=== PATIENT | female | born 1985 | race African-American/Black ===

== ENCOUNTER 2020-06-05 13:15 | Outpatient (CLI) | payer OTHER, SELFPAY ==
[2020-06-05 15:02] LABS: Hepatitis C Virus Antibody Negative (Negative)
[2020-06-06 09:00] LABS: Rapid Plasma Reagin Non-Reactive (NonReactive)
== END 2020-06-05 13:16 | disposition home or self-care (01) ==
PROVIDERS: Visit Provider Obstetrics & Gynecology
DX: Z20.2 Contact with and (suspected) exposure to infections with a predominantly sexual mode of transmission (principal)
CPT/HCPCS: 36415; 86592; 86803

== ENCOUNTER 2021-04-06 13:15 | Outpatient (CLI) | payer OTHER, SELFPAY ==
[2021-04-06 14:50] LABS: HIV 1/2 Ab P24 Ag Result Negative (Negative)
[2021-04-06 15:01] LABS: Rubella IgG Antibody > 120.0 IU/ML
[2021-04-06 15:18] LABS: Hepatitis C Virus Antibody Negative (Negative)
[2021-04-06 15:48] LABS: Basophils Percent Auto 0.2 % (0.2-1.2); Eosinophils Percent Auto 0.3 % (0-4.4); Hematocrit 32.4 % (37.0-47.0); Hemoglobin 10.2 g/dL (12.0-15.0); Immature Granulocyte Absolute 0.04 K/mm3 (0.00-0.031); Immature Granulocyte Percent A 0.4 % (0-0.5); Lymphocytes Absolute Auto 1.69 K/mm3 (0.9-3.2); Mean Corpuscular HGB Conc 31.5 g/dl (32-36); Mean Corpuscular Hemoglobin 28.3 pg (26-34); Mean Corpuscular Volume 89.8 fl (80-100); Mean Platelet Volume 12.3 fl (7.4-10.4); Monocytes Absolute Auto 0.6 K/mm3 (0.1-0.6); Monocytes Percent Auto 6.4 % (2.6-8.5); Neutrophils Absolute Auto 7.5 K/mm3 (1.3-6.7); Neutrophils Percent Auto 75.7 % (45.5-73.1); Platelet Count Result 199 k/mm3 (150-375); Red Blood Count 3.61 M/mm3 (4.2-5.4); Red Cell Distribution Width 16.9 % (11.5-14.5)
[2021-04-06 16:06] LABS: Add Urine Microscopic? YES; Appearance Urine Cloudy (Clear); Bilirubin Urine Negative (Negative); Blood Urine Negative (Negative); Color Urine Yellow (Yellow); Glucose Urine UA Negative (Negative); Ketones Urine Negative (Negative); Leukocyte Esterase Ur 2+ LEU/UL (NEGATIVE); Mucus Urine Rare /lpf; Nitrate Urine Negative (Negative); Protein Urine 2+ mg/dL (Negative); Specific Grav Ur 1.025 (1.001-1.035); Squamous Epithelial Cell Urine Many /hpf (Few); WBC Urine 21-30 /hpf (0-3)
[2021-04-07 09:47] LABS: Rapid Plasma Reagin Non-Reactive (NonReactive)
[2021-04-09 13:33] LABS: Hematocrit 31.6 % (35.0-45.0); Hemoglobin 10.3 g/dL (11.7-15.5); MCH 28.8 pg (27.0-33.0); MCV 88.3 fL (80.0-100.0); RDW 17.5 % (11.0-15.0); Red Blood Cell Count 3.58 Mill/uL (3.80-5.10)
== END 2021-04-06 13:16 | disposition home or self-care (01) ==
PROVIDERS: PCP Obstetrics & Gynecology; Visit Provider Obstetrics & Gynecology
DX: Z34.90 Encounter for supervision of normal pregnancy, unspecified, unspecified trimester (principal)
CPT/HCPCS: 36415; 81001; 83021; 84443; 85025; 86592; 86703; 86762; 86787; 86803; 86850; 86900; 86901; 87077; 87086; 87088; 87186; G0432

== ENCOUNTER → 2021-04-21 04:56 | Outpatient (CLI) | payer OTHER, SELFPAY ==
[2021-04-22 01:26] LABS: SARS-CoV-2 RNA PCR Positive
== END ==
PROVIDERS: PCP Obstetrics & Gynecology; Visit Provider Obstetrics & Gynecology
DX: U07.1 COVID-19 (principal); R09.81 Nasal congestion; R05 Cough
CPT/HCPCS: C9803; U0003; U0005

== ENCOUNTER 2021-06-01 14:36 | Outpatient (CLI) | payer OTHER, SELFPAY ==
[2021-06-01 16:32] LABS: Basophils Percent Auto 0.2 % (0.2-1.2); Eosinophils Percent Auto 0.3 % (0-4.4); Hematocrit 29.5 % (37.0-47.0); Hemoglobin 9.7 g/dL (12.0-15.0); Immature Granulocyte Absolute 0.04 K/mm3 (0.00-0.031); Immature Granulocyte Percent A 0.4 % (0-0.5); Lymphocytes Percent Auto 20.6 % (18.3-44.2); Mean Corpuscular HGB Conc 32.9 g/dl (32-36); Mean Corpuscular Hemoglobin 29.3 pg (26-34); Mean Corpuscular Volume 89.1 fl (80-100); Mean Platelet Volume 11.2 fl (7.4-10.4); Monocytes Absolute Auto 0.6 K/mm3 (0.1-0.6); Monocytes Percent Auto 6.5 % (2.6-8.5); Neutrophils Absolute Auto 6.6 K/mm3 (1.3-6.7); Platelet Count Result 177 k/mm3 (150-375); Red Blood Count 3.31 M/mm3 (4.2-5.4); Red Cell Distribution Width 14.7 % (11.5-14.5); White Blood Count 9.2 K/mm3 (4.5-10.0)
[2021-06-01 16:56] LABS: Glucose 1 Hour PP 50gm Dose 104 mg/dL
[2021-06-01 17:31] LABS: Vitamin D 25 Hydroxy 26.4 ng/mL
[2021-06-01 17:45] LABS: Hepatitis B Surface Antigen Negative (Negative)
[2021-06-10 11:42] LABS: CF Result NEGATIVE (NEGATIVE); Ethnicity NG
== END 2021-06-01 14:37 | disposition home or self-care (01) ==
LOC: ANHLAB 14:39
PROVIDERS: PCP Obstetrics & Gynecology; Visit Provider Obstetrics & Gynecology
DX: Z34.90 Encounter for supervision of normal pregnancy, unspecified, unspecified trimester (principal); Z3A.24 24 weeks gestation of pregnancy
CPT/HCPCS: 36415; 81220; 82306; 82947; 85025; 87340

== ENCOUNTER 2021-07-29 13:29 | Outpatient (CLI) | payer OTHER, SELFPAY ==
[2021-07-29 14:08] LABS: Basophils Percent Auto 0.1 % (0.2-1.2); Eosinophils Percent Auto 0.3 % (0-4.4); Hemoglobin 8.6 g/dL (12.0-15.0); Immature Granulocyte Absolute 0.03 K/mm3 (0.00-0.031); Immature Granulocyte Percent A 0.4 % (0-0.5); Lymphocytes Absolute Auto 1.41 K/mm3 (0.9-3.2); Mean Corpuscular HGB Conc 31.9 g/dl (32-36); Mean Corpuscular Hemoglobin 27.1 pg (26-34); Mean Corpuscular Volume 85.2 fl (80-100); Mean Platelet Volume 11.9 fl (7.4-10.4); Monocytes Absolute Auto 0.5 K/mm3 (0.1-0.6); Monocytes Percent Auto 6.6 % (2.6-8.5); Neutrophils Absolute Auto 5.9 K/mm3 (1.3-6.7); Neutrophils Percent Auto 74.6 % (45.5-73.1); Nucleated Red Blood Cells Perc 0.3 % (0.0-0.2); Platelet Count Result 164 k/mm3 (150-375); Red Blood Count 3.17 M/mm3 (4.2-5.4); Red Cell Distribution Width 14.1 % (11.5-14.5); White Blood Count 7.8 K/mm3 (4.5-10.0)
[2021-07-29 15:02] LABS: HIV 1/2 Ab P24 Ag Result Negative (Negative)
[2021-07-30 13:58] LABS: Rapid Plasma Reagin Non-Reactive (NonReactive)
== END 2021-07-29 13:30 | disposition home or self-care (01) ==
LOC: ANHLAB 13:30
PROVIDERS: PCP Obstetrics & Gynecology; Visit Provider Obstetrics & Gynecology
DX: Z34.93 Encounter for supervision of normal pregnancy, unspecified, third trimester (principal); Z3A.32 32 weeks gestation of pregnancy
CPT/HCPCS: 36415; 85025; 86592; 86703; G0432

== ENCOUNTER 2021-09-16 00:01 | Inpatient (IN) | payer OTHER, SELFPAY ==
[2021-09-16] VITALS (45 sets, daily range): BP systolic 101–159; BP diastolic 49–131; PULSE 53–141; RESP 16–18; TEMP 36.5–37.1; BMI 33.7
[2021-09-16 00:33] LABS: Basophils Percent Auto 0.1 % (0.2-1.2); Eosinophils Percent Auto 0.2 % (0-4.4); Hemoglobin 9.4 g/dL (12.0-15.0); Immature Granulocyte Absolute 0.02 K/mm3 (0.00-0.031); Immature Granulocyte Percent A 0.2 % (0-0.5); Lymphocytes Percent Auto 25.5 % (18.3-44.2); Mean Corpuscular HGB Conc 32.4 g/dl (32-36); Mean Corpuscular Hemoglobin 27.9 pg (26-34); Mean Corpuscular Volume 86.1 fl (80-100); Mean Platelet Volume 11.9 fl (7.4-10.4); Monocytes Absolute Auto 0.7 K/mm3 (0.1-0.6); Monocytes Percent Auto 8.4 % (2.6-8.5); Neutrophils Absolute Auto 5.4 K/mm3 (1.3-6.7); Neutrophils Percent Auto 65.6 % (45.5-73.1); Nucleated Red Blood Cells Perc 0.2 % (0.0-0.2); Platelet Count Result 173 k/mm3 (150-375); Red Blood Count 3.37 M/mm3 (4.2-5.4); Red Cell Distribution Width 17.3 % (11.5-14.5); White Blood Count 8.2 K/mm3 (4.5-10.0)
[2021-09-16] MEDS: LACTATED RINGERS 1,000 ML 125 ML IV CONT (00:41)
[2021-09-16] MEDS: AMPICILLIN 2 GM/NS 100 ML 2 GM/100 ML BAG IVPB (00:42)
[2021-09-16] MEDS: DINOPROSTONE 10 MG VAG INSERT VAGINAL (00:44)
--- NOTE | 2021-09-16 01:13 | LDADM ---
This patient, Parviz Andre, was admitted to Labor/Delivery/Recovery 104 on 09/16/21 at 00:01. Plans for labor, pain management and were discussed with patient. Patient/family oriented to hospital policies and general routines including ID bracelet, bed and alarms, visiting hours, pain management, procedures, bathroom and other care routines, personal items, smoking policy, room service/diet and guest tray routines, infant security routines, and visiting hours. Patient/Family are encouraged to report perceived risks to care and to ask questions if they do not understand what they are told or what they should do. See OBIX for further documentation.
--- NOTE | 2021-09-16 03:27 | WPDANESEPP ---
Anes - Eval Pre Procedure Procedure: labor epidural Date/Time: 09/16/21 03:27 Surgeon: thuan Preop Diagnosis: pain during labor Pre Op Diagnosis: IOL Patient Data Age: 35 Gender: F Height: 1.6 m Weight: 86.36 kg Last Vital Signs Pulse 71 09/16/21 03:16 BP 120/69 09/16/21 03:16 Allergies Allergy/AdvReac Type Severity Reaction Status Date / Time No Known Allergies Allergy Verified 09/07/21 13:58 Home Medications Medication Instructions Recorded Confirmed Type vits 75-iron 28 mg-folic 1 pkg PO DAILY 02/11/21 09/08/21 History acid 800 mcg-omega-3 oral combo pack ferrous sulfate 325 mg (65 mg 325 mg PO DAILY #90 tablet 04/08/21 09/08/21 Rx iron) tablet Laboratory Tests 09/16/21 09/16/21 09/16/21 00:19 00:19 00:19 WBC 8.2 K/mm3 K/mm3 (4.5-10.0) RBC 3.37 M/mm3 L M/mm3 (4.2-5.4) Hgb 9.4 g/dL L g/dL (12.0-15.0) Hct 29.0 % L % (37.0-47.0) MCV 86.1 fl fl (80-100) MCH 27.9 pg pg (26-34) MCHC 32.4 g/dl g/dl (32-36) RDW 17.3 % H % (11.5-14.5) Plt Count 173 k/mm3 k/mm3 (150-375) MPV 11.9 fl H fl (7.4-10.4) Immature Gran % (Auto) 0.2 % % (0-0.5) Neut % (Auto) 65.6 % % (45.5-73.1) Lymph % (Auto) 25.5 % % (18.3-44.2) [place] % (Auto) 8.4 % % (2.6-8.5) Eos % (Auto) 0.2 % % (0-4.4) Baso % (Auto) 0.1 % L % (0.2-1.2) Lymph # (Auto) 2.10 K/mm3 K/mm3 (0.9-3.2) [place] # (Auto) 0.7 K/mm3 H K/mm3 (0.1-0.6) Eos # (Auto) 0.0 K/mm3 K/mm3 (0-0.3) Baso # (Auto) 0.0 K/mm3 K/mm3 (0.0-0.1) Abs Immat Gran (auto) 0.02 K/mm3 K/mm3 (0.00-0.031) Absolute Neuts (auto) 5.4 K/mm3 K/mm3 (1.3-6.7) Absolute Nucleated RBC 0.0 K/mm3 K/mm3 (0.0-0.012) Nucleated RBC % 0.2 % % (0.0-0.2) RPR Pending Blood Type A Positive Antibody Screen Negative Patient hx anesthesia problems: none Family hx anesthesia problems: none Results Review: All pre-operative results and documents have been reviewed as part of the pre-operative evaluation. PMFSH Past Medical History Medical History Anemia Vaginal delivery x1 Family History Family History Grandparent Diabetes mellitus Cerebrovascular accident Father High cholesterol Mother Hypertension Sibling Hypertension Social History Social History Smoking status: Never smoker Alcohol intake: current Drinks per week: 3 Substance use: never Spiritual care concerns: No Exam Day of Procedure 09/16/21 03:27
[2021-09-16] MEDS: AMPICILLIN 1 GM/NS 50 ML 1 GM/50 ML BAG IVPB ×3 (04:59→12:51)
[2021-09-16] MEDS: OXYTOCIN 30 UNITS/NS 500 ML 30 UNITS/500 ML BAG IV CONT (09:19)
[2021-09-16] MEDS: fentaNYL CITRATE INJ (*CRX) 100 MCG/2 ML VIAL 50 MCG IV PUSH ×2 (10:46→14:21)
[2021-09-16 14:53] LABS: Rapid Plasma Reagin Non-Reactive (NonReactive)
[2021-09-16] MEDS: OXYTOCIN 30 UNITS/NS 500 ML 30 UNITS/500 ML BAG 125 UNITS IV CONT (16:45)
[2021-09-16] MEDS: IBUPROFEN 600 MG TABLET PO ×2 (17:51→23:53)
[2021-09-16] MEDS: BENZOCAINE 20% AER SPR (*SP) 56 GM CAN 1 SPRAY TOPICAL (17:51)
[2021-09-16] MEDS: WITCH HAZEL 40 PADS 1 PAD TOPICAL (17:51)
--- NOTE | 2021-09-16 19:26 | OBPPTRN ---
Patient transferred to post room #292 via W/C. Support person present. Oriented to unit, room, information board, rooming in, admission packet and security measures. Patient verbalizes understanding.
--- NOTE | 2021-09-16 19:29 | PM.IMHP ---
H&P: HPI History of Present Illness Date/Time: 09/16/21 19:29 Patient admitted on 09/16 for cervidil induction. PNC significant for anemia of . She did has been taking iron supplementation. She is 40 weeks by LMP 12/10/2020 with an EDC 09/16/2021, consistent with an 11 week ultrasound. labs reviewed. GBS neg. Chief Complaint: Induction of labor. Review of Systems Review of Systems: All systems reviewed & are unremarkable except as noted in HPI and below Constitutional: Constitutional: Reports no additional constitutional complaints and Denies headache(s) Eyes: Eyes: Denies spots in vision ENT: Reports system reviewed and no additional complaints, except as documented and Denies headache(s) Cardiovascular: Cardiovascular: Denies chest pain and Denies dyspnea Respiratory: Respiratory: Denies dyspnea Gastrointestinal: Gastrointestinal: Reports no additional gastrointestinal complaints Genitourinary: Genitourinary: Reports amenorrhea Musculoskeletal: Musculoskeletal: Reports no additional musculoskeletal complaints Integumentary/Breasts: Skin/Breast: Denies breast mass and Denies rash Neurologic: Denies headache(s) Psychiatric: Psychiatric: Reports no additional psychiatric complaints [facility] Past Medical History Medical History Anemia Vaginal delivery x1 Family History Family History Grandparent Diabetes mellitus Cerebrovascular accident Father High cholesterol Mother Hypertension Sibling Hypertension Social History Social History Smoking status: Never smoker Alcohol intake: current Drinks per week: 3 Substance use: never Spiritual care concerns: No Meds Home Medications and Allergies Home Medications Medication Instructions Recorded Confirmed Type vits 75-iron 28 mg-folic 1 pkg PO DAILY 02/11/21 09/08/21 History acid 800 mcg-omega-3 oral combo pack ferrous sulfate 325 mg (65 mg 325 mg PO DAILY #90 tablet 04/08/21 09/08/21 Rx iron) tablet Allergies Allergy/AdvReac Type Severity Reaction Status Date / Time No Known Allergies Allergy Verified 09/07/21 13:58 Vital Signs Vital Signs - 24 hr 09/16/21 00:27 09/16/21 01:01 09/16/21 01:16 Temperature 98.1 F Pulse Rate 76 78 94 Respiratory Rate 16 Blood Pressure 127/85 130/79 126/104 H 09/16/21 01:31 09/16/21 01:46 09/16/21 02:01 Temperature 98.3 F Pulse Rate 74 73 75 Respiratory Rate 18 Blood Pressure 101/71 108/72 115/64 09/16/21 02:16 09/16/21 02:31 09/16/21 02:46 Temperature Pulse Rate 75 78 80 Respiratory Rate Blood Pressure 114/75 116/71 110/69 09/16/21 03:01 09/16/21 03:16 09/16/21 03:31 Temperature Pulse Rate 66 71 76 Respiratory Rate Blood Pressure 126/70 120/69 115/54 L 09/16/21 03:46 09/16/21 04:01 09/16/21 04:16 Temperature Pulse Rate 75 82 67 Respiratory Rate Blood Pressure 107/51 L 119/70 115/64 09/16/21 04:31 09/16/21 04:47 09/16/21 05:01 Temperature Pulse Rate 65 65 70 Respiratory Rate Blood Pressure 101/75 130/74 117/61 09/16/21 05:05 09/16/21 07:00 09/16/21 07:12 Temperature 97.9 F 98.1 F Pulse Rate 69 Respiratory Rate 16 Blood Pressure 150/98 H 09/16/21 09:20 09/16/21 09:31 09/16/21 10:02 Temperature Pulse Rate 73 71 73 Respiratory Rate Blood Pressure 130/84 137/83 144/81 H 09/16/21 10:31 09/16/21 11:00 09/16/21 11:53 Temperature 97.7 F Pulse Rate 67 76 Respiratory Rate Blood Pressure 119/81 130/85 09/16/21 12:02 09/16/21 12:30 09/16/21 12:31 Temperature 98.1 F Pulse Rate 67 79 Respiratory Rate Blood Pressure 148/68 H 159/131 H 09/16/21 13:01 09/16/21 13:31 09/16/21 14:00 Temperature 98.8 F Pulse Rate 75 66 Respiratory Rate Blood Pressure 150/96 H 136/69
--- NOTE | 2021-09-16 19:37 | PM.OBPNVD ---
OB - PN: Subj Subjective Date/time seen: 09/16/21 1330 Cat 2 AROM clear cervix /-2. Continue pitocin. OB - PN: Obj Data Labs CBC & Chem 7: 09/16/21 00:19 Labs: Laboratory Results - last 24 hr 09/16/21 09/16/21 09/16/21 00:19 00:19 00:19 WBC 8.2 RBC 3.37 L Hgb 9.4 L Hct 29.0 L MCV 86.1 MCH 27.9 MCHC 32.4 RDW 17.3 H Plt Count 173 MPV 11.9 H Immature Gran % (Auto) 0.2 Neut % (Auto) 65.6 Lymph % (Auto) 25.5 [place] % (Auto) 8.4 Eos % (Auto) 0.2 Baso % (Auto) 0.1 L Lymph # (Auto) 2.10 [place] # (Auto) 0.7 H Eos # (Auto) 0.0 Baso # (Auto) 0.0 Abs Immat Gran (auto) 0.02 Absolute Neuts (auto) 5.4 Absolute Nucleated RBC 0.0 Nucleated RBC % 0.2 RPR Non-reactive Blood Type A Positive Antibody Screen Negative OB - PN A/P Time Spent With Patient Time: Total time spent is greater than 50% in coordination of care (as documented) at patient's floor/unit and/or counseling patient:
--- NOTE | 2021-09-16 19:38 | PM.OBPNVD ---
OB - PN: Subj Subjective Date/time seen: 09/16/21 1600 T cat 2, patient with urge to push, cervix /-1. OB - PN: Obj Data Labs CBC & Chem 7: 09/16/21 00:19 Labs: Laboratory Results - last 24 hr 09/16/21 09/16/21 09/16/21 00:19 00:19 00:19 WBC 8.2 RBC 3.37 L Hgb 9.4 L Hct 29.0 L MCV 86.1 MCH 27.9 MCHC 32.4 RDW 17.3 H Plt Count 173 MPV 11.9 H Immature Gran % (Auto) 0.2 Neut % (Auto) 65.6 Lymph % (Auto) 25.5 [place] % (Auto) 8.4 Eos % (Auto) 0.2 Baso % (Auto) 0.1 L Lymph # (Auto) 2.10 [place] # (Auto) 0.7 H Eos # (Auto) 0.0 Baso # (Auto) 0.0 Abs Immat Gran (auto) 0.02 Absolute Neuts (auto) 5.4 Absolute Nucleated RBC 0.0 Nucleated RBC % 0.2 RPR Non-reactive Blood Type A Positive Antibody Screen Negative OB - PN A/P Time Spent With Patient Time: Total time spent is greater than 50% in coordination of care (as documented) at patient's floor/unit and/or counseling patient:
--- NOTE | 2021-09-16 19:39 | PM.OBPRVD ---
OB - Delivery Note Procedure Delivery date: 09/16/21 Procedure: spontaneous vaginal delivery Events: Positive Group B Strep (GBS) Induction method: Per Misoprostol Protocol Delivery augmentation: Rupture of Membranes and Pitocin Delivery monitor: External FHT Route of delivery: Laceration Description: Perineal - 1st Degree and Vaginal Delivery repair: vicryl (3.0 vicryl) Specimen: Yes Quantitative Blood Loss (ml): 250 Anesthesia type: Local Disposition: floor Complications: None Narrative: Patient admitted for cervidil.Cervidil removed after 8 hours. Pitocin initiated. She had AROM clear and progressed into active labor. She had urge to push and then dilated to complete. She delivered a female infant. Terminal meconium present. suctioned at perineum with bulb at nose and mouth and then placed on maternal abdomen. Delayed cord clamping after 45 seconds when cord was apulsatile. Cord blood obtained and cord gas venous obtained. Unable to obtain arterial gas. Placenta delivered spontaneously and intact. The cord insertion appeared marginal. Will send to pathology. She sustained a left vaginal laceration near introitus extending to superior perineum repaired with several sutures of 3.0 vicryl in a figure of eight fashion. Hemostasis noted. Baby Date of : 09/16/21 Time of : 16:07 Weeks of gestation at delivery: 40 Infant gender: Female Weight (pounds): 7 Weight (ounces): 1 presentation: vertex position: Right Occiput Anterior Placenta delivery description: Spontaneous Cord Vessel Description: Delayed Cord Clamping score one minute: 8 score five minutes: 9
[2021-09-17] MEDS: IBUPROFEN 600 MG TABLET PO ×2 (04:58→10:28)
[2021-09-17 05:00] VITALS: BP 114/69; PULSE 81; RESP 18; TEMP 36.8
[2021-09-17 05:41] LABS: Hematocrit 25.6 % (37.0-47.0)
[2021-09-17 08:55] VITALS: PULSE 81; RESP 18
[2021-09-17 09:00] VITALS: BP 102/79; PULSE 72; RESP 16; TEMP 36.8; O2SAT 100
[2021-09-17] MEDS: POLYSACCHARIDE IRON COMPLEX 150 MG CAPSULE PO (10:21)
[2021-09-17] MEDS: DOCUSATE SODIUM 100 MG CAPSULE PO (10:21)
[2021-09-17] MEDS: MULTIVIT/MIN/PREN/FOL AC/IRON TABLET 1 TAB PO (10:21)
[2021-09-17 12:20] VITALS: BP 118/66; PULSE 88; RESP 16; TEMP 36.9; O2SAT 100
[2021-09-17 12:30] VITALS: PULSE 88; RESP 16; O2SAT 100
--- NOTE | 2021-09-17 15:01 | PM.OBPNVD ---
OB - PN: Subj Subjective Date/time seen: 09/17/21 15:01 Patient comments: pain well controlled, tolerating diet and other (Decreasing lochia.) baby status: doing well and nursing well OB - PN: Obj Data Labs CBC & Chem 7: 09/17/21 05:08 Labs: Laboratory Results - last 24 hr 09/17/21 05:08 Hgb 8.0 L Hct 25.6 L OB - PN A/P Plan day: 1 Plan: routine care Comments: Patient doing well. Baby doing well. She wishes to go home today. Discussed discharge precautions. Time Spent With Patient Time: Total time spent is greater than 50% in coordination of care (as documented) at patient's floor/unit and/or counseling patient: Exam Psych: Affect: normal affect Other: Abd: fundus firm below umbilicus, nontender Perineum: healing Ext: nontender
--- NOTE | 2021-09-17 15:23 | PC.NURSE ---
0952 -Introductions were made and consulted with patient to assess her plans to feed baby. Mother led conversation with her experience with feeding baby so far. Mother works well with her and father is actively involved. Reviewed good handwashing when working with infant, breast, nipples and how to protect the nipples with a deep latch. Encouraged understanding the benefits of skin to skin, pumping 8 times in 24 hours with 1-2 times at night for good milk production, intake/output feeding sheet and signs of adequate intake. Discussed stimulating with skin to skin, hand expressing colostrum, touch and talking to infant to encourage eating. Resources used to facilitate learning were used from the mom and baby guide. Mother voiced understanding responding to feeding cues, may need to stimulating approximately 3 hours from the start of the last feeding, calling for assistance as needed. Reported to primary RN. 1033 - RN called into the room to collect colostrum that was expressed with the pump. The parents will save the 1/2 tsp of colostrum for the next feeding. Reviewed collecting and storage of human milk using the mom and baby guide as a resource.
--- NOTE | 2021-10-12 11:34 | PM.OBDSVD ---
DS: Admitting Diagnosis Discharge Date 09/17/21 Admitting Diagnosis Induction of labor DS: Discharge Diagnosis Discharge Diagnosis (1) Delivery normal: Code(s): O80 - Encounter for full-term uncomplicated delivery Status: Acute OB - DS: Summary Hospital Course Hospital Course: Patient admitted for induction of labor at term. She had an uncomplicated vaginal delivery. She did well and desires discharge on day one. She was ambulating well, tolerating regular diet. Had adequate pain control. The baby was doing well. Discussed discharge precautions. OB Procedures : Ultrasound OB Procedures Intrapartum: Spontaneous Vag Delivery OB Procedures: : None Peripartum Data Infant Delivery Method: Natural Vaginal complications: none Status at Discharge Functional status at discharge: independent ambulation Time Spent with Patient Time attestation: Total time spent providing and/or coordinating discharge services: Exam Const: General: cooperative Orientation/consciousness: oriented to person, oriented to place and oriented to time HENMT: General nose exam: Normal external nose present Eyes: General: appearance normal, both eyes and all related structures Resp: Effort & Inspection: normal respiratory effort GI: Inspection: normal to inspection Skin: General skin exam: normal color Neuro: General: oriented to person, oriented to place and oriented to time Extrem: General: normal to inspection and no calf tenderness Psych: Appearance: grossly normal Mental Status: mental status grossly normal DS: Data Data Completed and Pending Completed studies during hospitalization: Pending at discharge 09/16/21 16:13 Surgical [PTH] Routine Discharge Plan Discharge Attending physician on discharge: Refugio Whatley Discharging Clinician: Refugio Whatley Anticipated Discharge Date/Time: 09/17/21 18:13 Patient Disposition: Home, Self-Care Activity: may shower and pelvic rest Diet: regular Discharge Instructions: Pelvic rest for 4-6 weeks. May take over the counter Ibuprofen or Tylenol for pain. Call if saturating more than a pad an hour, leg redness, pain and swelling, temperature>100.4. No strenuous activity. Education: Mom and Baby Guide Given to: Mother Follow-Up: Call your delivering provider's office for an appointment to be seen in: 4-6 Weeks Mom and baby should come to the [facility] for the follow-up appointment. Appointment Date/Time: September 18, 2021 at 11:00 am What to expect at your follow-up visit: Blood Pressure Check Physical Assessment Call [phone] if you are unable to keep your appointment time. BREAST CARE: * Wear a snug supportive bra. * For engorgement discomfort: Breast Feeding: * Apply warm moist washcloths * Express milk as needed to relieve engorgement * Wear loose clothing Bottle Feeding: * May apply ice packs * For sore nipples: * Identify correct latch-on * Apply warm moist washcloths before and after nursing * Air dry nipples after nursing * May apply Lansinoh cream to nipples EPISIOTOMY/PERINEAL CARE: * Until bleeding stops, use your jocelyne bottle after urinating * Change your pad frequently throughout the day * You may take sitz baths several times a day (fill your bathtub with warm water and soak for 20 minutes.) Do NOT bathe in the water * No tub baths until seen by your physician - You may shower ACTIVITY: * Rest as much as possible. * Do not exercise or lift anything heavier than your baby (such as laundry or other children.) * Avoid stairs or driving as much as possible. * Do not put anything into the vagina. No douching, tampons, or sexual activity until seen by physician. NOTIFY PHYSICIAN IF YOU HAVE ANY QUESTIONS OR IF ANY OF THE FOLLOWING SYMPTOMS OCCUR: * If your vaginal area becom
== END 2021-09-17 18:02 | disposition home or self-care (01) | DRG 807 ==
LOC: ANHLDR 00:11 → ANHOB2 20:32
PROVIDERS: Admitting Provider Obstetrics & Gynecology; Visit Provider Obstetrics & Gynecology
DX: O99.824 Streptococcus B carrier state complicating childbirth (principal); Z37.0 Single live birth; Z3A.40 40 weeks gestation of pregnancy; O99.02 Anemia complicating childbirth; D64.9 Anemia, unspecified; O77.0 Labor and delivery complicated by meconium in amniotic fluid; O43.123 Velamentous insertion of umbilical cord, third trimester; O70.0 First degree perineal laceration during delivery; O36.8330 Maternal care for abnormalities of the fetal heart rate or rhythm, third trimester, not applicable or unspecified
CPT/HCPCS: 36415; 85014; 85018; 85025; 86592; 86850; 86900; 86901; 88307; A9270; J0290; J2590; J3010; J7120